=== PATIENT | female | born 1975 | race Caucasian/White ===

== ENCOUNTER 2018-02-11 23:23 | Emergency (ER) | payer BC ==
[2014-11-23 12:47] VITALS: BMI 25.5
[~2018-02-11 23:23] MED LIST: ABILIFY2 MG PO; HYDROCODONE-APA1 TAB PO; PROZAC20 MG PO
[2018-02-12 00:27] LABS: APPEARANCE HAZY (CLEAR); BILIRUBIN NEGATIVE (NEGATIVE); COLOR YELLOW (YELLOW); GLUCOSE NEGATIVE (NEGATIVE); NITRITE POSITIVE (NEGATIVE); UROBILINOGEN NORMAL (NORMAL)
[2018-02-12 00:28] LABS: BACTERIA MANY /hpf (NONE SEEN); EPITHELIAL CELLS 0-5 /hpf (0-5); KETONE NEGATIVE (NEGATIVE); RED CELLS - URINE NONE SEEN /hpf (0-5); WHITE CELLS - URINE 0-5 /hpf (0-5)
[2018-02-12 00:31] LABS: BASOPHILS 0.3 % (0-2); EOSINOPHILS 1.5 % (0-7); HEMATOCRIT 43.9 % (36.0-48.0); HEMOGLOBIN 15.5 g/dL (12-16); IMMATURE GRANULOCYTES 0.3 % (0-5); LYMPHOCYTES 38.9 % (15-50); MCH 34.2 pg (26.0-34.0); MCHC 35.3 g/dL (31.0-37.0); MCV 96.9 fL (80.0-100.0); MEAN PLATELET VOLUME 8.5 fL (7.4-10.4); MONOCYTES 8.9 % (2-11); NEUTROPHILS 50.1 % (40-80); PLATELET COUNT 326 10x3/uL (130-400); RBC 4.53 10x6/uL (4.00-5.40); RDW 11.9 % (11.5-14.5); WBC 10.6 10x3/uL (4.8-10.8)
[2018-02-12 00:49] LABS: AMYLASE - SERUM 22 U/L (25-115); LIPASE 113 U/L (73-393)
[2018-02-12 00:56] LABS: PROTEIN NEGATIVE (NEGATIVE)
[2018-02-12 01:33] LABS: ALBUMIN 3.8 g/dL (3.4-5.0); ALKALINE PHOSPHATASE 95 U/L (46-116); ALT (SGPT) 25 U/L (10-68); CALC OSMOLALITY 277 mosm/kg (275-300); CALCIUM 9.2 mg/dL (8.5-10.1); CARBON DIOXIDE 26.6 mmol/L (21.0-32.0); CHLORIDE - SERUM 104 mmol/L (98-107); CREATININE - SERUM 0.7 mg/dL (0.6-1.3); GLUCOSE 108 mg/dL (74-106); POTASSIUM - SERUM 3.5 mmol/L (3.5-5.1); PROTEIN - SERUM 7.4 g/dL (6.4-8.2); SODIUM 138 mmol/L (136-145); UREA NITROGEN 15 mg/dL (7-18); eGFR NON AFRICAN AMERICAN > 90 mL/min (90-120)
== END 2018-02-12 03:20 | disposition home or self-care (01) ==
LOC: D.ER 23:23
PROVIDERS: Family Medicine; Physician Assistant Medical
DX: N39.0 Urinary tract infection, site not specified (principal); R10.13 Epigastric pain; K46.9 Unspecified abdominal hernia without obstruction or gangrene; F17.200 Nicotine dependence, unspecified, uncomplicated

== ENCOUNTER 2019-04-14 08:17 | Day surgery (SDC) | payer BC ==
[2019-04-13 10:10] LABS: HEMATOCRIT 46.4 % (36.0-48.0); HEMOGLOBIN 16.1 g/dL (12-16); MCH 33.7 pg (26.0-34.0); MCHC 34.7 g/dL (31.0-37.0); MCV 97.1 fL (80.0-100.0); MEAN PLATELET VOLUME 8.4 fL (7.4-10.4); RBC 4.78 10x6/uL (4.00-5.40); RDW 12.6 % (11.5-14.5); WBC 13.7 10x3/uL (4.8-10.8)
[~2019-04-14] VITALS: Ht 177.8 cm; Wt 88.9 kg
[~2019-04-14 08:17] MED LIST changes: +EFFEXOR XR150 MG PO; +TAMOXIFEN CITRA20 MG PO
[2019-04-14 09:12] VITALS: BP 121/72; Ht 177.8 cm; Wt 88.9 kg
[2019-04-14] MEDS ORDERED: PERCOCET 5-3251 TAB PO (11:38)
[2019-04-14] MEDS ORDERED: VISTARIL50 MG PO (11:39)
[2019-04-14] MEDS ORDERED: ELIQUIS2.5 MG PO (11:39)
--- NOTE | 2019-04-17 07:58 | OP ---
PATIENT NAME: QUE NOLAND MEDICAL RECORD: [id number] :73 LOCATION:[facility] ADMISSION DATE: SURGEON: KORIN MACEDO DO DATE OF OPERATION: 04/14/2019 PROCEDURE PERFORMED: Left talar subchondroplasty and left ankle arthroscopy. PREOPERATIVE DIAGNOSIS: Left ankle subchondral lesion of the talus POSTOPERATIVE DIAGNOSIS: Left ankle subchondral lesion of the talus. INDICATIONS: Ms. Noland is a 43-year-old female that has had left ankle pain for quite some time. She ended up getting an MRI, which demonstrated a subchondral lesion that she did not go through the chondral plate and into the joint. I told her she would be a good candidate for the subchondroplasty with AccuFill, we would put some cement and AccuFill in it and let it sit in and should resolve her pain or at least improve it. She is okay with that. Aware of the risk of infection, bleeding, damage to nerves and vessels, need for further surgery, continued pain and even a talar collapse. She is okay with those risks knowing the benefits, blood clots, and even and signed the consent. SURGEON: Korin Macedo DO DESCRIPTION OF PROCEDURE: The patient was taken to the operative suite, laid in supine position after given a block by anesthesia in the preoperative area, she was given 2 grams Ancef preoperatively. The left lower extremity was prepped and draped in sterile fashion. A timeout was performed and everyone was in agreeance with the correct side, site, patient and procedure. Once time out was performed, the incision was made just distal to the medial malleolus with an 11-blade scalpel and the trocar for the AccuFill was put into the talus, right where the lesion is on the MRI. This was confirmed on AP and lateral x-ray. Then, the pin was removed, the guide pin, and 2.5cc of AccuFill was injected into the lesion under fluoroscopy, it filled it very well seeing it on the fluoroscopy. Then, while it hardened this, then the trocar was removed and any cement that had spilled out into the soft tissue was removed at that time. Then, the ankle was scoped by just establishing a medial portal just medial to the anterior tibialis. The distractor from [employer] was used. A 10 mL of normal saline was injected into the ankle joint to distend it. A #11 blade scalpel was used to open the portal and then a hemostat was used to open it up. The ankle joint was then entered with a 2.9 mm trocar and it was inspected. There were no loose bodies in the joint. The cement did not go through the cartilage and there were no full-thickness or any cartilage lesions for that matter in the talus or in the tibia. There were no other lesions seen and the scope was removed. The tourniquet that had been prior to the starting was up for approximately 50 minutes. It was let down at the end of procedure. The portal site and the incision site were closed with 5-0 Monocryl in an inverted interrupted fashion and Dermabond glue placed over it and the patient was placed in a well-padded posterior splint and awakened and taken to recovery in stable condition. BLOOD LOSS: Minimal. COMPLICATIONS: None. TRANSINT:[id number] Voice Confirmation ID: [id number] DOCUMENT ID: [id number] OPERATIVE REPORT [id number] QUE NOLAND,KORIN Tomlinson DO at 0758 CC: [id number] DICTATION DATE: 04/14/19 1133 EVS ATTENDANT: 04/14/[address] [facility] [place], [place] 04/14/19 [facility] [address] [place] [address]
== END 2019-04-14 12:45 | disposition home or self-care (01) ==
LOC: D.OPS 08:17 → D.PAN 10:00 → D.OPS 11:30
PROVIDERS: Anesthesiology; ATTEND Orthopaedic Surgery
DX: M89.9 Disorder of bone, unspecified (principal)

== ENCOUNTER 2019-05-30 05:15 | Day surgery (SDC) | payer BC ==
[2019-05-29 12:00] LABS: HEMATOCRIT 41.4 % (36.0-48.0); HEMOGLOBIN 14.4 g/dL (12-16); MCH 33.4 pg (26.0-34.0); MCHC 34.8 g/dL (31.0-37.0); MCV 96.1 fL (80.0-100.0); MEAN PLATELET VOLUME 8.5 fL (7.4-10.4); RBC 4.31 10x6/uL (4.00-5.40); RDW 12.6 % (11.5-14.5); WBC 9.7 10x3/uL (4.8-10.8)
[~2019-05-30] VITALS: Ht 177.8 cm; Wt 86.2 kg
[~2019-05-30 05:15] MED LIST changes: +ELIQUIS2.5 MG PO; +PERCOCET 5-3251 TAB PO; +VISTARIL50 MG PO
[2019-05-30 06:16] VITALS: BP 106/45; Ht 177.8 cm; Wt 86.2 kg
[2019-05-30] MEDS ORDERED: PERCOCET 5-3251 TAB PO (08:02)
[2019-05-30] MEDS ORDERED: VISTARIL50 MG PO (08:03)
--- NOTE | 2019-05-30 10:38 | OP ---
PATIENT NAME: QUE NOLAND MEDICAL RECORD: [id number] :73 LOCATION:[facility] ADMISSION DATE: SURGEON: BRAXTON MACEDO DO DATE OF OPERATION: 05/30/2019 PREOPERATIVE DIAGNOSIS: Heterotopic ossification, foreign body, left ankle. POSTOPERATIVE DIAGNOSIS: Heterotopic ossification, foreign body, left ankle. PROCEDURE: Left ankle incision and drainage with removal of heterotopic ossification. INDICATIONS: Ms. Noland is a 43-year-old female who underwent a talar subchondroplasty approximately 6 weeks ago. She had increasing pain and drainage out of the small incision over the medial malleolus. It did not appear to be infected, it was not red or did not have purulence pouring out of it. However, the increasing pain and x-rays were taken and it appeared that she had some heterotopic ossification growing in the medial malleolus. This was not typically expected, but she could have had some of the AccuFill spill out from the talus tracking bone to grow there. Due to this fact, I informed her we wash it out, getting much out as we could and she was okay with that. She was informed that she would be risk for infection, bleeding, damage to nerves and vessels, ankle instability and having further surgeries. She was okay with that and signed the consent. SURGEON: Braxton Macedo DO DESCRIPTION OF PROCEDURE: The patient received a block by anesthesia in the preoperative area, taken to the operative suite, laid in supine position. Left lower extremity was prepped and draped in sterile fashion. She was sedated and LMA was placed. She was given 2 grams Ancef preoperatively. Once the left lower extremity was prepped and draped, the leg was held. A timeout was performed. Everyone was in agreeance with the correct side, site, patient and procedure. The leg was then held, elevated and the tourniquet was inflated to 350 mmHg, it was up for 23 minutes. A small incision was made over the previous incision, extending it and careful dissection was made down the AccuFill what appeared to be AccuFill was seen as a white powder substance in the soft tissue. This was all removed as much as possible and irrigated, and this was done, x-rays were taken and appeared to have most of it removed and was more thoroughly irrigated. Then, the capsule was closed with 3-0 Vicryl in a ssuaco-en-huwze fashion. Tourniquet was let down and the skin was closed with 3-0 Vicryl in inverted interrupted fashion and 3-0 nylon in a [id number]-[id number]-jwnvr and single simple interrupted stitch. Adaptic, 4 x 4, cast padding and Edilson was then placed on the ankle. She was awakened and taken to recovery in stable condition. BLOOD LOSS: Minimal. COMPLICATIONS: None. Cultures were taken as well as some of the AccuFill what appeared to be AccuFill sent to the lab. TRANSINT:[id number] Voice Confirmation ID: [id number] DOCUMENT ID: [id number] OPERATIVE REPORT [id number] QUE NOLAND MICHAEL D, DO at 1038 CC: [id number] DICTATION DATE: 05/30/19 0807 PIERCING ARTIST: 05/30/19 0842 [facility] [address] [place] [address]
--- NOTE | 2019-05-30 11:38 | NUR ---
0870 UP TO BATHROOM WITH ASSISTANCE & USING WALKER. LIMITED WEIGHT BEARING TO LEFT FOOT. VOIDED. ASSISTED BACK TO BED. RANKS PAIN 05/10. ADVISED WILL NEED TO EAT PRIOR TO PO PAIN MED. Sarkis SALES R.N.
--- NOTE | 2019-05-30 11:45 | NUR ---
1015 DRESSED. GIVEN DISCHARGE INFORMATION INCLUDING: RX: FOR PERCOCET & TORADOL. MED REC., RTC APPT., [facility] D/C INSTRUCTIONS, & COMPUTER PRINTOUT FOR INCISION & DRAINAGE. PT VOICED UNDERSTANDING. TO PRIVATE CAR PER WHEELCHAIT BY VOLUNTEER. HOME WITH FAMILY. Sarkis SALES R.N.
== END 2019-05-30 10:15 | disposition home or self-care (01) ==
LOC: D.OPS 05:15 → D.PAN 11:00 → D.OPS 13:15 → D.PAN 13:15
PROVIDERS: Anesthesiology; ATTEND Orthopaedic Surgery
DX: M61.572 Other ossification of muscle, left ankle and foot (principal); Z01.812 Encounter for preprocedural laboratory examination